=== PATIENT | female | born 1970 | race Caucasian/White ===

== ENCOUNTER 2017-07-26 19:04 | Emergency (ER) | payer BC ==
[2017-07-26] MEDS ORDERED: SODIUM CHLORIDE 0.9% 500 ML IV ONE (19:24)
--- NOTE | 2017-07-26 19:30 | Emergency Department Record ---
History of Present Illness - General Chief Complaint: Dizziness Stated Complaint: DIZZINESS/BLURRED VISION Time Seen by Provider: 07/26/17 19:23 Source: Patient Mode of Arrival: Wheelchair Limitations: No limitations - History of Present Illness Initial Comments: 47 yo female presents with transiently feeling dizzy, hot and flushed, and transient blurry vision. 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 She states she vaguely did not feel well getting ready similar to when she gets a migraine. She was driving to work and felt worse. On arrival she took her BP and it was 191/123. On arrival it was 117/98. No chest pain, shortness of breath, weakness, speech changes, ataxia, coordination changes. She now has a mild vague headache like her migraine. PCP is Hankenson. TAN Complaint: Dizziness, Lightheadedness Onset/Timin -: Hour(s) Timing: Gradual onset Description: Lightheadedness History of Same: No History of Trauma: No Improves With: Nothing Worsens With: Movement, Exertion Associated Symptoms: Fever/chills - [place] Coma Scale Eye Response: (4) Open spontaneously Motor Response: (6) Obeys commands Verbal Response: (5) Oriented [place] Total: 15 - Symptoms of Stroke Symptoms of stroke: Dizziness - Related Data Previous Rx's Medication Instructions Recorded Hydrocodone/Acetaminophen [Shirley 0.5 - 1 tab PO TID PRN #10 tab 05/20/14 5-325 Tablet] Ibuprofen [Motrin] 600 mg PO Q6H #20 tablet 05/20/14 Allergies Allergy/AdvReac Type Severity Reaction Status Date / Time No Known Drug Allergies Allergy Unverified 09/30/16 13:24 Travel Screening - Travel/Exposure Within Last 30 Days Have you traveled within the last 30 days?: No - Travel Symptoms Symptom Screening: None Review of Systems Constitutional: Denies: Chills, Fever, Malaise, Weakness Eyes: Reports: Vision change (briefly felt blurry in the left, normal now). Denies: Eye discharge, Eye pain, Photophobia ENT: Denies: Congestion, Throat pain Respiratory: Denies: Cough, Dyspnea Cardiovascular: Denies: Chest pain, Palpitations, Syncope Endocrine: Denies: Fatigue Gastrointestinal: Reports: Nausea. Denies: Abdominal pain, Diarrhea, Vomiting Genitourinary: Denies: Dysuria, Urgency Musculoskeletal: Denies: Arthralgia, Back pain, Joint swelling, Myalgia Skin: Denies: Bruising, Change in color, Rash Neurological: Reports: Headache, Vertigo, Weakness. Denies: Abnormal gait, Confusion, Numbness, Seizure, Tingling, Tremors Psychiatric: Denies: Anxiety Hematological/Lymphatic: Denies: Blood Clots, Easy bleeding, Easy bruising, Swollen glands Past Medical History - SOCIAL HISTORY Smoking Status: Current every day smoker Alcohol Use: Rare Drug Use: None - RESPIRATORY Hx Respiratory Disorders: Yes Hx Bronchitis: Yes Hx Sleep Apnea: Yes (not sure but snores loudly) Comment:: allergies - CARDIOVASCULAR Hx Cardio Disorders: Yes Hx Edema: Yes (mild happens when on feet) - NEURO Hx Neuro Disorders: Yes Hx Headaches: Yes Hx of Migraines: Yes (3x's a month) Hx Weakness: Yes (hands) - GI Hx GI Disorders: Yes Hx Reflux: Yes (controlled on meds) Hx Ulcer: Yes - Hx Genitourinary Disorders: No Comment:: S/P hyst - ENDOCRINE Hx Endocrine Disorders: No - MUSCULOSKELETAL Hx Musculoskeletal Disorders: Yes Hx Arthritis: Yes - PSYCH Hx Psych Problems: Yes Hx Anxiety: Yes Hx Depression: Yes - HEMATOLOGY/ONCOLOGY Hx Hematology/Oncology Disorders: No Family Medical History Any Significant Family History?: Yes Hx Cancer: Grandparents Hx Diabetes: Father, Mother Hx HTN: Father, Mother Physical Exam - General General Appearance: Alert, Oriented x3, Cooperative, No acute distress, Other ( Well appearing, clear speech, very good historian) Limitations: No limitations - Head Head exam: Atraumatic, Normocephalic, Normal inspection - Eye Eye exam: Normal appearance, PERRL, EOMI. negative: Conjunctival injection, Nystagmus, Periorbital swelling, Periorbital tenderness Pupils: Normal accommodation. negative: Irregular, Unequal - ENT ENT exam: Normal exam, Mucous membranes moist, Normal orophraynx Ear exam: Normal external inspection. negative: External canal tenderness Nasal Exam: Normal inspection. negative: Discharge, Sinus tenderness Mouth exam: Normal external inspection, Tongue normal Teeth exam: Normal inspection. negative: Dental caries Throat exam: Normal inspection. negative: Tonsillar erythema, Tonsillar exudate - Neck Neck exam: Normal inspection, Full ROM. negative: Tenderness - Respiratory Respiratory exam: Normal lung sounds bilaterally. negative: Respiratory distress, Rhonchi, Stridor, Wheezes - Cardiovascular Cardiovascular Exam: Regular rate, Normal rhythm, Normal heart sounds Peripheral Pulses: 2+: Radial (R), Radial (L) - GI/Abdominal GI/Abdominal exam: Soft, Normal bowel sounds. negative: Tenderness - Rectal Rectal exam: Deferred - exam: Deferred - Extremities Extremities exam: Normal inspection, Full ROM, Normal capillary refill. negative: Pedal edema, Tenderness - Back Back exam: Reports: Normal inspection, Full ROM. Denies: Muscle spasm, Rash noted, Tenderness - Neurological Neurological exam: Alert, CN II-XII intact, Normal gait, Oriented X3, Reflexes normal, Other (Normal FTN, NO PND, normal ALBERT, NO ataxia). negative: Abnormal gait, Altered, Motor sensory deficit - Psychiatric Psychiatric exam: Normal affect, Normal mood - Skin Skin exam: Dry, Intact, Normal color, Warm Course Vital Signs 07/26/17 19:21 Temperature 98.3 F Pulse Rate 88 Respiratory 24 Rate Blood Pressure 117/98 Pulse Ox 95 - Reevaluation(s) Reevaluation #1: Vitals reviewed BP is 117/98 Well appearing patient EKG 1917 NSR rate 87 intervals normal axis normal ST. No acute changes. Normal EKG 07/26/17 19:31 07/26/17 20:32 HCT is negative 07/26/17 20:32 No acute changes on the labs 07/26/17 20:43 The patient is feeling well at this time Her BP is 116/78 We discussed close recheck with her PCP this week We discussed home care and reasons to return to the ED 07/26/17 20:44 Medical Decision Making - Lab Data Result diagrams: 07/26/17 19:15 07/26/17 19:15 Disposition Disposition: Discharge Clinical Impression: Dizziness, Migraine Disposition: Home, Self-Care Condition: (1) Good Instructions: Dizziness (ED) Additional Instructions: Rest tonight No work tonight Call Dr Serra for BP recheck this week Return if you have any concerns or return of symptoms Forms: Patient Portal Access Time of Disposition: 20:44 Quality - Quality Measures Quality Measures: N/A - Blood Pressure Screening Does Patient Have Any of the Following: Active Dx of HTN Blood Pressure Classification: Hypertensive Reading Systolic Measurement: 117 Diastolic Measurement: 98 Screening for High Blood Pressure: Patient Exclusion, Hx of HTN [G9744]
[2017-07-26 19:33] LABS: BASO % 0.1 % (0-6); EOS % 1.2 % (0-6); GRAN % 55.4 % (47-80); HEMATOCRIT 41.8 % (35.0-47.0); HEMOGLOBIN 13.5 gm/dl (11.6-16.0); LYMPH % 38.4 % (16-45); MEAN CORPUSCULAR HEMOGLOBIN 30.7 pg (27-33); MEAN CORPUSCULAR HGB CONC 32.3 g/dl (32-36); MEAN PLATELET VOLUME 10.4 fl (7.4-10.4); MONO % 4.9 % (0-9); PLATELET COUNT 244 K/uL (130-400); RED CELL DISTRIBUTION WIDTH 14.2 % (11.5-14.5); WHITE BLOOD COUNT W/O DIFF 10.7 K/uL (4.2-12.2)
[2017-07-26 19:44] LABS: BLOOD UREA NITROGEN 18 mg/dL (6-20); CREATININE 0.7 mg/dL (0.5-0.9); EST GLOMERULAR FILTRATION RATE > 60 mL/min
[2017-07-26 19:45] LABS: BILIRUBIN,TOTAL < 0.20 mg/dL (0.2-1.0); TOTAL PROTEIN 7.2 g/dL (6.6-8.7)
[2017-07-26 19:47] LABS: GLUCOSE,RANDOM 92 mg/dL (74-109)
[2017-07-26 19:50] LABS: ALB/GLOB RATIO 1.3 (1.1-1.8); ALKALINE PHOSPHATASE 81 U/L (35-104); ALT/SGPT 22 U/L (<33); AST/SGOT 16 U/L (10.0-35.0)
[2017-07-26 20:00] LABS: THYROID STIMULATING HORMONE 0.96 uIU/mL (0.270-4.20)
--- NOTE | 2017-07-27 21:09 | CT SCAN REPORT ---
EXAM: CT SCAN HEAD WO CONTRAST HISTORY: DIZZINESS AND BLURRED VISION IN THE LEFT EYE. TECHNIQUE: Helical CT scan of the head obtained without intravenous contrast. HAND DOMINANCE: Right. COMPARISON: None. FINDINGS: No evidence of hemorrhage, extraaxial fluid collection, or major vessel infarction. Rios-white matter differentiation is maintained. Ventricles are normal. Basal cisterns are patent. No mass effect or midline shift. Calvarium is intact. Paranasal sinuses and middle ear cavities are well aerated. IMPRESSION: NO ACUTE INTRACRANIAL ABNORMALITIES. JOB NUMBER: [id number] [facility]
== END 2017-07-26 20:45 | disposition home or self-care (01) ==
LOC: ER 19:04
DX: R42 Dizziness and giddiness (principal); G43.909 Migraine, unspecified, not intractable, without status migrainosus; H53.8 Other visual disturbances; F17.210 Nicotine dependence, cigarettes, uncomplicated
CPT/HCPCS: 70450; 80053; 84443; 85025; 93005; 93010; 99284

== ENCOUNTER 2018-01-10 23:35 | Emergency (ER) | payer BC ==
--- NOTE | 2018-01-10 23:45 | Emergency Department Record ---
History of Present Illness - General Chief Complaint: Chest Pain Stated Complaint: CHEST PAIN Time Seen by Provider: 01/10/18 23:43 Source: Patient Mode of Arrival: Wheelchair Limitations: No limitations - History of Present Illness Initial Comments: 48 yo female presents to ED for evaluation of constant chest pressure that began 4 hours ago. Patient denies any recent illness, fevers, chills, or cough symptoms. Patient denies history of DVT, lower extremity swelling/pain, or pleuritic chest pain symptoms. Patient denies history of DM/CAD, denies any precipitating factors. Patient does report a history of anxiety. MD Complaint: Chest pain Onset/Timin -: Hour(s) Pain Location: Left chest Pain Radiation: None Severity: Moderate Quality: Aching Consistency: Constant Improves With: Nothing Worsens With: Nothing Treatments Prior to Arrival: None - Related Data On Oral Contraceptives: No Home Medications Medication Instructions Recorded Confirmed Last Taken Diphenhydramine HCl [Benadryl] 50 mg PO QHS 01/10/18 01/10/18 Unknown Previous Rx's Medication Instructions Recorded Ibuprofen [Motrin] 600 mg PO Q6H #20 tablet 05/20/14 Allergies Allergy/AdvReac Type Severity Reaction Status Date / Time No Known Drug Allergies Allergy Verified 01/10/18 23:37 Review of Systems Constitutional: Denies: Chills, Fever, Malaise, Night sweats Eyes: Denies: Eye discharge, Eye pain ENT: Denies: Congestion, Ear pain, Epistaxis Respiratory: Denies: Cough, Dyspnea Cardiovascular: Reports: Chest pain. Denies: Dyspnea on exertion Endocrine: Denies: Fatigue, Heat or cold intolerance Gastrointestinal: Denies: Abdominal pain, Nausea, Vomiting Genitourinary: Denies: Incontinence, Retention Musculoskeletal: Denies: Arthralgia, Back pain Skin: Denies: Bruising, Change in color Neurological: Denies: Abnormal gait, Confusion, Headache Psychiatric: Reports: Anxiety Hematological/Lymphatic: Denies: Anemia, Blood Clots Past Medical History - SOCIAL HISTORY Smoking Status: Current every day smoker Drug Use: None - RESPIRATORY Hx Respiratory Disorders: Yes Hx Bronchitis: Yes Hx Sleep Apnea: Yes (not sure but snores loudly) Comment:: allergies - CARDIOVASCULAR Hx Cardio Disorders: Yes Hx Edema: Yes (mild happens when on feet) - NEURO Hx Neuro Disorders: Yes Hx Headaches: Yes Hx of Migraines: Yes (3x's a month) Hx Weakness: Yes (hands) - GI Hx GI Disorders: Yes Hx Reflux: Yes (controlled on meds) Hx Ulcer: Yes - Hx Genitourinary Disorders: No Comment:: S/P hyst - ENDOCRINE Hx Endocrine Disorders: No - MUSCULOSKELETAL Hx Musculoskeletal Disorders: Yes Hx Arthritis: Yes - PSYCH Hx Psych Problems: Yes Hx Anxiety: Yes Hx Depression: Yes - HEMATOLOGY/ONCOLOGY Hx Hematology/Oncology Disorders: No Family Medical History Hx Cancer: Grandparents Hx Diabetes: Father, Mother Hx HTN: Father, Mother Physical Exam - General General Appearance: Alert, Oriented x3, Cooperative, Mild distress Limitations: No limitations - Head Head exam: Atraumatic, Normocephalic, Normal inspection Head exam detail: negative: Abrasion, Contusion, Gonzalez's sign, General tenderness, Hematoma, Laceration - Eye Eye exam: Normal appearance. negative: Conjunctival injection, Periorbital swelling, Periorbital tenderness, Scleral icterus - ENT Ear exam: negative: Auricular hematoma, Auricular trauma Nasal Exam: negative: Active bleeding, Discharge, Dried blood, Foreign body Mouth exam: negative: Drooling, Laceration, Muffled voice, Tongue elevation - Neck Neck exam: Normal inspection. negative: Meningismus, Tenderness - Respiratory Respiratory exam: Normal lung sounds bilaterally. negative: Rales, Respiratory distress, Rhonchi, Stridor - Cardiovascular Cardiovascular Exam: Regular rate, Normal rhythm, Normal heart sounds - GI/Abdominal GI/Abdominal exam: Soft. negative: Rebound, Rigid, Tenderness - Rectal Rectal exam: Deferred - exam: Deferred - Extremities Extremities exam: Normal inspection. negative: Calf tenderness, Pedal edema, Tenderness - Back Back exam: Denies: CVA tenderness (R), CVA tenderness (L) - Neurological Neurological exam: Alert, Normal gait, Oriented X3 - Psychiatric Psychiatric exam: Normal affect, Normal mood - Skin Skin exam: Normal color. negative: Abrasion Type of lesion: negative: abrasion Course Vital Signs 01/10/18 23:39 Temperature 97.9 F Pulse Rate [ 85 Pulse Ox Probe] Respiratory 18 Rate Blood Pressure 149/100 [Left Arm] Pulse Ox 96 - Reevaluation(s) Reevaluation #1: 01/10/18 23:44 EKG: NSR 82 Normal axis, normal intervals No acute ST-T wave changes PERC clinical decision rule was applied, and the patient does not have any of the following: -Age > 50 years -Pulse > 100 -Oxygen Saturation < 94% -History of Hemoptysis -Unilateral leg swelling -History or PE/DVT -Recent surgery or Trauma -Oral contraceptive/Hormone use Patient was seen and examined, will initiate cardiac evaluation, ASA ordered. Reevaluation #2: 01/11/18 00:08 Laboratory studies are grossly unremarkable for an acute process. Reevaluation #3: 01/11/18 00:52 CXR: No acute process The patient was deemed to be low-risk for cardiac disease based on the patient s history and evaluation in the ED, HEART Score was applied and found to be 2. As a result, repeat Troponin in 3-hours appears appropriate and if negative for myocardial injury, the patient may be discharged home with appropriate outpatient follow-up for further evaluation. Reevaluation #4: 01/11/18 03:29 Repeat Troponin is negative for myocardial injury. Patient updated on all results, resting comfortably sleeping, and appears stable for discharge at this time. Medical Decision Making - Lab Data Result diagrams: 01/10/18 23:45 01/10/18 23:45 Disposition Disposition: Discharge Clinical Impression: Chest pain Qualifiers: Chest pain type: unspecified Qualified Code(s): R07.9 - Chest pain, unspecified Disposition: Home, Self-Care Condition: (2) Stable Instructions: Chest Pain (ED) Additional Instructions: Return to ED if your symptoms worsen or if you have any concerns. Follow-up with your family doctor in 3-5 days as directed. Forms: Patient Portal Access Time of Disposition: 03:29 Quality - Quality Measures Quality Measures: N/A - Blood Pressure Screening Does Patient Have Any of the Following: No Blood Pressure Classification: Normal BP Reading Systolic Measurement: 104 Diastolic Measurement: 65 Screening for High Blood Pressure: < Normal BP, F/U Not Required > [G8783]
[2018-01-10] MEDS ORDERED: ASPIRIN 81 MG CHEWABLE TABLET PO ONE (23:49)
[2018-01-10 23:50] LABS: BASO % 0.2 % (0-6); GRAN % 55.9 % (47-80); HEMATOCRIT 41.7 % (35.0-47.0); HEMOGLOBIN 13.8 gm/dl (11.6-16.0); LYMPH % 38.3 % (16-45); MEAN CELL VOLUME 92.9 fl (81-97); MEAN CORPUSCULAR HEMOGLOBIN 30.7 pg (27-33); MEAN CORPUSCULAR HGB CONC 33.1 g/dl (32-36); MEAN PLATELET VOLUME 9.9 fl (7.4-10.4); MONO % 4.6 % (0-9); PLATELET COUNT 227 K/uL (130-400); RED BLOOD COUNT 4.49 M/uL (3.80-5.40); RED CELL DISTRIBUTION WIDTH 14.5 % (11.5-14.5); WHITE BLOOD COUNT W/O DIFF 10.4 K/uL (4.2-12.2)
[2018-01-10 23:59] LABS: BLOOD UREA NITROGEN 13 mg/dL (6-20); CREATININE 0.7 mg/dL (0.5-0.9); EST GLOMERULAR FILTRATION RATE > 60 mL/min
[2018-01-11] LABS: TOTAL PROTEIN 7.3 g/dL (6.6-8.7)
[2018-01-11 00:02] LABS: GLUCOSE,RANDOM 106 mg/dL (74-109)
[2018-01-11 00:04] LABS: ALT/SGPT 23 U/L (<33)
[2018-01-11 00:05] LABS: ALB/GLOB RATIO 1.3 (1.1-1.8); ALBUMIN 4.1 g/dL (4.0-5.0); ALKALINE PHOSPHATASE 81 U/L (35-104); AST/SGOT 18 U/L (10.0-35.0)
== END 2018-01-11 03:35 | disposition home or self-care (01) ==
LOC: ER 23:35
DX: R07.89 Other chest pain (principal); F17.210 Nicotine dependence, cigarettes, uncomplicated
CPT/HCPCS: 71046; 80053; 84484; 85025; 93005; 93010; 99284

== ENCOUNTER 2018-07-27 11:22 | Day surgery (SDC) | payer BC ==
[2018-07-27] MEDS ORDERED: PROPOFOL 10 MG/ML VIAL IV ONE (11:23)
[2018-07-27] MEDS ORDERED: FENTANYL PF 100MCG/2ML VIAL IV ONE (11:23)
--- NOTE | 2018-07-30 09:51 | Operative Note ---
DATE OF SURGERY: 07/27/2018 SURGEON: Jose Guillen MD OPERATION: ESOPHAGOGASTRODUODENOSCOPY. INDICATIONS: This is a 48-year-old female with history of intermittent episodes of dysphagia who presented for esophagogastroduodenoscopy. POSTOPERATIVE DIAGNOSES: 1. Normal esophagus with no specific strictures. Status post biopsies to rule out eosinophilic esophagitis and Randall dilatation to 60-[place]. 2. Diffuse gastritis. 3. Normal duodenum. 4. Normal retroflexion. ANESTHESIA: Sedation is per Anesthesia. Pulse oximetry was monitored throughout the procedure to maintain O2 saturation of 90% or greater. Supplemental oxygen was administered via nasal cannula. Cardiac and vital signs were monitored throughout the duration of the procedure, and they were stable. The procedure of esophagogastroduodenoscopy and risks and benefits of the procedure, including the risk of bleeding and perforation, among others, were explained to the patient who voiced understanding and agreed to have the procedure done. Physical examination was performed, and the patient was found stable for sedation. PROCEDURE: The patient was placed in the left lateral position. Sedation was initiated. A plastic bite block was inserted into the oral cavity. The Olympus [id number] gastroscope was introduced into the oral cavity and advanced to the proximal esophagus without difficulty. The esophageal mucosa was carefully examined upon introduction of the gastroscope. The proximal and mid and distal esophageal mucosa appeared normal. The gastroscope was then advanced into the stomach, and surveillance of the stomach revealed diffuse erythema along the gastric body and antrum but no ulcers were noted. The gastroscope was then advanced to the descending duodenum without difficulty. The duodenal bulb and descending duodenum appeared normal. The gastroscope was then withdrawn into the stomach and retroflexion was performed. There were no other lesions noted. The gastroscope was then straightened and withdrawn while carefully examining the gastric and esophageal mucosa. No other lesions noted. Multiple gastric and mid esophageal biopsies were obtained. The patient remained with stable vital signs. Randall dilator size 60-[place] was then passed into the stomach with mild resistance. The Randall dilator was then withdrawn and the procedures were terminated. The patient tolerated procedure well without any immediate complications. She remained with stable vital signs and was transferred to the recovery room. RECOMMENDATIONS: 1. The patient is to be on high-fiber diet. 2. The patient is to continue her proton pump inhibitors. 3. I would be happy to see her back in the office as needed. Thank you for allowing me to participate in the care of your patient. CC: Margarita VIVAR
== END 2018-07-27 13:35 | disposition home or self-care (01) ==
LOC: HOP 11:22
PROVIDERS: ATTEND Internal Medicine Gastroenterology
DX: Z87.19 Personal history of other diseases of the digestive system (principal); K29.70 Gastritis, unspecified, without bleeding; K21.9 Gastro-esophageal reflux disease without esophagitis
CPT/HCPCS: 43239; 43450; 00731; J3010